=== PATIENT | male | born 1970 | race Caucasian/White ===

== ENCOUNTER 2024-01-12 10:45 | Outpatient (CLI) | payer OTHER, SELFPAY ==
[2024-01-12 11:58] LABS: Basophils Absolute Auto 0.1 K/mm3 (0.0-0.1); Basophils Percent Auto 0.8 % (0.2-1.2); Eosinophils Absolute Auto 0.1 K/mm3 (0-0.3); Hematocrit 48.9 % (42.0-52.0); Hemoglobin 16.8 g/dL (14.0-18.0); Immature Granulocyte Absolute 0.02 K/mm3 (0.00-0.031); Immature Granulocyte Percent A 0.3 % (0-0.5); Lymphocytes Percent Auto 24.9 % (18.3-44.2); Mean Corpuscular HGB Conc 34.4 g/dl (32-36); Mean Corpuscular Hemoglobin 36.1 pg (26-34); Mean Corpuscular Volume 104.9 fl (80-100); Mean Platelet Volume 8.7 fl (7.4-10.4); Monocytes Absolute Auto 0.7 K/mm3 (0.1-0.6); Neutrophils Absolute Auto 4.6 K/mm3 (1.3-6.7); Platelet Count Result 211 k/mm3 (150-375); Red Blood Count 4.66 M/mm3 (4.6-6.20); Red Cell Distribution Width 12.4 % (11.5-14.5); White Blood Count 7.2 K/mm3 (4.5-10.0)
[2024-01-12 12:12] LABS: Alanine Aminotransferase 87 U/L (6-50); Albumin Level 4.9 g/dL (3.5-5.1); Alkaline Phosphatase 58 U/L (38-126); Anion Gap 12 mmol/L (4-12); Aspartate Amino Transferase 125 U/L (17-59); Bilirubin,Total 1.5 mg/dL (0.2-1.3); Blood Urea Nitrogen 12 mg/dL (9-20); Calcium 10.4 mg/dL (8.4-10.2); Carbon Dioxide 27 mmol/L (22-30); Chloride 102 mmol/L (98-107); Cholesterol 280 mg/dL (0-200); Estimated Glomerular Filt Rate > 60; Glucose 98 mg/dL (65-110); HDL Direct 79 mg/dL; Potassium 5.1 mmol/L (3.4-5.0); Sodium 141 mmol/L (137-145); Triglycerides 104 mg/dL (<150)
[2024-01-12 12:25] LABS: LDL Cholesterol Direct 177 mg/dL
[2024-01-12 12:42] LABS: Prostate Specific Antigen 0.5 ng/mL (< OR = 4.0)
[2024-01-12 12:59] LABS: Vitamin D 25 Hydroxy 43.1 ng/mL
[2024-01-12 14:09] LABS: Hemoglobin A1C 5.1 % (<5.7)
== END 2024-01-12 10:46 | disposition home or self-care (01) ==
PROVIDERS: PCP Family Medicine; Visit Provider Family Medicine
DX: E55.9 Vitamin D deficiency, unspecified (principal); R53.83 Other fatigue; R73.9 Hyperglycemia, unspecified; Z13.220 Encounter for screening for lipoid disorders; Z12.5 Encounter for screening for malignant neoplasm of prostate
CPT/HCPCS: 36415; 80053; 80061; 82306; 83036; 84153; 84439; 84443; 85025; G0103

== ENCOUNTER 2024-06-14 09:51 | Outpatient (CLI) | payer OTHER, SELFPAY ==
--- NOTE | ~2024-06-14 | XR_ITS ---
AP view of the pelvis and AP and lateral views of the bilateral hips Clinical history: Pain Findings: No acute fracture or dislocation is seen. Osseous alignment is anatomic. Bilateral hip and SI joint spaces are preserved. Soft tissues are unremarkable. Impression: No significant abnormality is seen. Reviewed, dictated and finalized at location . Impression: No significant abnormality is seen.
== END 2024-06-14 09:52 | disposition home or self-care (01) ==
LOC: GOSHIMG 09:51
PROVIDERS: PCP Family Medicine; Visit Provider Family Medicine
DX: M25.551 Pain in right hip (principal); G89.29 Other chronic pain
CPT/HCPCS: 73521

== ENCOUNTER 2024-11-20 10:44 | Outpatient (CLI) | payer OTHER, SELFPAY ==
--- NOTE | ~2024-11-20 | XR_ITS ---
XR lumbar spine min 4V Indication: Worsening pain in right groin region, pain x 2 years Comparison: None Findings: The vertebral heights are intact. No fracture or subluxation. Moderate loss of disc height at L4-5 and L5-S1 Soft tissues unremarkable Impression: No acute abnormality. Reviewed, dictated and finalized at location A. Impression: No acute abnormality.
== END 2024-11-20 10:45 | disposition home or self-care (01) ==
LOC: GOSHIMG 10:44
PROVIDERS: PCP Family Medicine; Visit Provider Family Medicine
DX: M79.606 Pain in leg, unspecified (principal); M54.10 Radiculopathy, site unspecified
CPT/HCPCS: 72110

== ENCOUNTER 2024-12-02 08:20 | Outpatient (CLI) | payer OTHER, SELFPAY ==
--- NOTE | 2024-12-02 | CONSULT_PTH ---
PATIENT: Jourdan Fowler LOC: [facility] #:[id number] AGE/SX: 54/M ROOM: RE12/02/[address]: Alexia Contreras DO : 1970 BED: DIS: 12/02/2024 SPEC #: [id number] RECD: 12/02/24 09:32 STATUS: [place] REQ #: [id number] SUMAN: 12/02/24 00:[address]: Alexia Contreras DEPT: [facility] Consult RECD BY: Doris Way MLT, ([facility]) Tissues: A - Peripheral Smear Procedures: Hematology Consult
--- OUTSIDE RECORDS SUMMARY | 2024-12-02 08:44 | XMS_ITS | Clinical Summary ---
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 15 Gram 5 07/13/19 17 Active Podofilox (CONDYLOX) 0.5 % GelIndications: Genital warts Apply to affected area daily Twice a day for 3 days then stop for 4 days and can repeat 4 times. 3.5 Gram 5 07/13/19 17 Active Ketoconazole 2 % Foam Apply to affected area 1 time daily as needed for Other (See Comment) (rash). 100 Gram 2 01/26/20 17 Active pseudoephedrine (SUDAFED 12 HOUR) 120 mg Extended Release 12 hour tabletIndicatio ns:Nasal sinus congestion Take 1 Tablet (120 mg) by mouth 2 times daily as needed for Congestion. 60 Tablet 09/20/19 19 Active lisinopriL (PRINIVIL) 20 mg tablet TAKE 1 TABLET BY MOUTH EVERY DAY 90 Tablet 08/20/19 20 Active Active Problems Problem Noted Date Diagnosed Date HTN (hypertension), benign 01/25/2017 Genital warts 07/12/2016 Eczema 07/12/2016 Immunizations Immunization Administration Dates Next Due INFLUENZA VACCINE QUADRIVALE NT 3 YR UP PF IM 12/30/2015 Influenza Seasonal Unspecifi ed Formulation IM 12/19/2018,12/06/2018,01/04/2018,2016,12/03/2016,12/07/2011 Influenza Vaccine Nasal 12/30/2014 Influenza Vaccine Nasal Quad 12/30/2013,01/09/20 13 Family History Medical History Relation Name Comments Healthy Father Healthy Maternal Grandfather Healthy Maternal Grandmother Healthy Mother Heart Disease Paternal Grandfather Healthy Paternal Grandmother Healthy Sister 1 Healthy Sister 2 Relation Name Status Comments Father Alive Maternal Grandfather Alive Maternal Grandmother Alive Mother Alive Paternal Grandfather Paternal Grandmother Sister 1 Alive Sister 2 Alive Social History Tobacco Use Types Packs/Day Years Used Date Smoking Tobacco: Never Smokeless Tobacco: Never Alcohol Use Standard Drinks/Week Comments Yes 12.5 (1 standard drink = 0.6 oz pure alcohol) Sex and Gender Information Value Date Recorded Sex Assigned at Not on file Legal Sex Male 6:11 AM [employer] Gender Identity Not on file Sexual Orientation Not on file Occupation Industry Job Start Date Job End Date Not on file Not on file Not on file Not on file Last Filed Vital Signs Vital Sign Reading Time Taken Comments Blood Pressure 115/88 01/28/2019 10:57 AM [employer] OPER[employer] Pulse 98 01/28/2019 10:57 AM [employer] OPERATOR Temperature 35.8 C (96.4 F) 01/28/2019 10:57 AM [employer] OPERATOR Respiratory Rate 15 01/28/2019 10:57 AM [employer] OPERATOR Oxygen Saturation 98% 01/28/2019 10:57 AM [employer] OPERATOR Inhaled Oxygen Concentration - - Weight 97.5 kg (215 lb) 01/28/2019 10:57 AM [employer]OL OPERATOR Height 180.3 cm (5' 11) 01/28/2019 10:57 AM [employer] OPERATOR Body Mass Index 29.99 01/28/2019 10:57 AM [employer] OPERATOR Plan of Treatment Health Maintenance Due Date Last Done Comments DTAP/TDAP/TD VACCINES (1 - Tdap) 1989 HEPATITIS B VACCINES (1 of 3 - 19+ 3-dose series) 1989 COLORECTAL SCREENING 2015 Colorectal Cancer Screening 2015 FIT-DNA Q 3 years 2015 FIT/FOBT Q 1 year 2015 Flex Sig/CT Colonography Q 5 years 2015 ZOSTER VACCINE (1 of 2) 02/18/2020 INFLUENZA VACCINE (#1) 2024 9, 12/06/2018, 01/04/2018, Additional history exists Care Teams Cnc Machine Operator Relationship Specialty Start Date End Date Pramod Otero MD [address] [place] [address] PCP - General Internal Medicine 10/28/19
[2024-12-02 08:45] LABS: Hematocrit 45.6 % (42.0-52.0); Hemoglobin 16.3 g/dL (14.0-18.0); Immature Granulocyte Percent A 0.5 % (0-0.5); Lymphocytes Absolute Auto 1.65 K/mm3 (0.9-3.2); Mean Corpuscular HGB Conc 35.7 g/dl (32-36); Mean Corpuscular Hemoglobin 35.2 pg (26-34); Mean Corpuscular Volume 98.5 fl (80-100); Nucleated Red Blood Cells Absolute Auto 0.000 K/mm3 (0.0-0.012); Nucleated Red Blood Cells Perc 0.0 % (0.0-0.2); Platelet Count Result 227 k/mm3 (150-375); Red Blood Count 4.63 M/mm3 (4.6-6.20); White Blood Count 5.6 K/mm3 (4.5-10.0)
[2024-12-02 09:09] LABS: Alanine Aminotransferase 35 U/L (6-50); Albumin Level 4.4 g/dL (3.5-5.1); Alkaline Phosphatase 60 U/L (38-126); Anion Gap 9 mmol/L (4-12); Aspartate Amino Transferase 42 U/L (17-59); Bilirubin,Total 1.4 mg/dL (0.2-1.3); Blood Urea Nitrogen 11 mg/dL (9-20); Calcium 9.7 mg/dL (8.4-10.2); Carbon Dioxide 26 mmol/L (22-30); Chloride 103 mmol/L (98-107); Cholesterol 250 mg/dL (0-200); Estimated Glomerular Filt Rate > 60; Glucose 116 mg/dL (65-110); HDL Direct 62 mg/dL; Potassium 3.9 mmol/L (3.4-5.0); Sodium 138 mmol/L (137-145); Total Protein 7.9 g/dL (6.3-8.2); Triglycerides 127 mg/dL (<150)
[2024-12-02 09:46] LABS: Hepatitis B Surface Antigen Negative (Negative)
[2024-12-02 09:52] LABS: HAV RESULT Negative (Negative); Hepatitis B Core IgM Result Negative (Negative)
[2024-12-02 10:21] LABS: Vitamin B12 > 1000.0 pg/mL (239-931)
[2024-12-05 03:07] LABS: Free Testosterone (Direct) 6.3 pg/mL (7.2-24.0)
== END 2024-12-02 08:21 | disposition home or self-care (01) ==
LOC: ANHLAB 08:24
PROVIDERS: PCP Family Medicine; Visit Provider Family Medicine
DX: D75.89 Other specified diseases of blood and blood-forming organs (principal); E78.5 Hyperlipidemia, unspecified; R74.8 Abnormal levels of other serum enzymes; R68.82 Decreased libido
CPT/HCPCS: 36415; 80053; 80061; 80074; 82172; 82607; 82746; 84402; 84403; 85025